=== PATIENT | female | born 1930 | race Caucasian/White ===

== ENCOUNTER 2021-06-20 07:54 | Inpatient (IN) | payer MEDICARE, BC ==
[2021-06-15 14:26] LABS: BASOPHILS % (AUTO) 0.5 % (0-1); EOSINOPHILS # (AUTO) 0.2 X10'3 (0-0.9); EOSINOPHILS % (AUTO) 3.3 % (0-6); LYMPHOCYTES # (AUTO) 1.2 X10'3 (1.1-4.8); LYMPHOCYTES % (AUTO) 18.6 % (21-51); MEAN CORPUSCULAR HEMOGLOBIN 30.8 PG (27.0-31.0); MEAN CORPUSCULAR HGB CONC 32.9 g/dL (33.0-36.5); MEAN CORPUSCULAR VOLUME 93.7 FL (78-98); MEAN PLATELET VOLUME 7.6 FL (7.4-10.4); MONOCYTES # (AUTO) 0.7 X10'3 (0-0.9); MONOCYTES % (AUTO) 10.3 % (2-12); NEUTROPHILS # (AUTO) 4.5 X10'3 (1.8-7.7); NEUTROPHILS % (AUTO) 67.3 % (42-75); PRE OP HEMATOCRIT 41.2 % (35.0-45.0); PRE OP HEMOGLOBIN 13.5 g/dL (12.0-16.0); PRE OP PLATELET COUNT 247 X10'3 (140-440); RED CELL DISTRIBUTION WIDTH 13.6 % (11.5-14.5)
[2021-06-15 14:39] LABS: ALBUMIN 4.2 G/DL (3.4-5.0); ALBUMIN/GLOBULIN RATIO 1.2 (1.1-1.5); ALKALINE PHOSPHATASE 80 IU/L (46-116); BLOOD UREA NITROGEN 22 MG/DL (7-18); BUN/CREATININE RATIO 18.2 (6.6-38.0); CALCIUM 9.4 MG/DL (8.5-10.1); CHLORIDE 99 MMOL/L (99-107); CREATININE 1.21 MG/DL (0.40-0.90); PRE OP ALT 32 U/L (30-65); PRE OP ANION GAP 9 (8-16); PRE OP AST 27 U/L (10-37); PRE OP BILIRUB, TOTAL 0.4 MG/DL (0.0-1.0); PRE OP GLUCOSE 125 MG/DL (70-104); PRE OP POTASSIUM 4.6 MMOL/L (3.4-5.1); PRE OP SODIUM 136 MMOL/L (135-145); TOTAL CARBON DIOXIDE 27.9 MMOL/L (24-32); TOTAL PROTEIN 7.8 G/DL (6.4-8.2); eGFR 42 ML/MIN
[2021-06-15 14:40] LABS: HEMOGLOBIN A1C 6.5 % (4.5-6.2)
[2021-06-20] VITALS (31 sets, daily range): BP systolic 122–171; BP diastolic 52–100
[~2021-06-20] VITALS: Ht 172.7 cm; Wt 74.8 kg
[~2021-06-20 07:54] MED LIST: ASCO-157 PO; ATOR40TA PO; CALC-336 PO; CETI-90 PO; CHOL400T8 PO; DESO60CR TOP; FLAX100015 PO; GABA600T13 PO; LACT1CAP65 PO; LOSA50TA3 PO; METF-900 PO; MOME17SP5 BOTHNARES; MULT-620 PO; POTA8CAP20 PO; VITA-268 PO; VITA400T10 PO; XAL0.005OS OP; cefazolin/dext.iso 2gm/50ml IV ONE; famotidine 20mg tablet PO ONE; ringers solution, lacted 1,000 ML IV SCH; tranexamic acid 650mg tablet PO ONE; vancomycin 1,500 MG in NS 300ml IV soln IV ONE
--- NOTE | 2021-06-20 09:33 | NUR ---
STATES ALLERGY TO ALL ANTIBIOTICS. RECEIVED VANCOMYCIN AND ANCEF 05/2020 PRE-OP FOR SURGERY WITH NO REACTION.
--- NOTE | 2021-06-20 11:23 | NUR ---
REPORT OFF TO ASIA KAUR WHO ASSUMES PT CARE WITH ALL QUESTIONS ANSWERED. PT COMFORTABLE ON THE GURNEY WITH ABIMAEL AT THE BEDSIDE. AWAITING SURGERY
[2021-06-20] MEDS ORDERED: meperidine/PF 25mg/ml syringe IV ONE (13:15)
[2021-06-20] MEDS ORDERED: fentaNYL/PF 50MCG/1 ML 2ML syringe ONE ×2 (14:25→15:19)
[2021-06-20] MEDS ORDERED: midazolam 1 mg/ML 2ml injection ONE (14:25)
[2021-06-20] MEDS ORDERED: sevoflurane 250ml liquid IH ONE (15:14)
[2021-06-20] MEDS ORDERED: ondansetron/PF 4mg/2ml inj IV PRN ×2 (15:15→16:30)
[2021-06-20] MEDS ORDERED: HYDROmorphone/PF 0.2 MG/ML SYRINGE IV PRN (15:15)
[2021-06-20] MEDS ORDERED: ringers solution, lacted 1,000 ML IV SCH (15:15)
[2021-06-20] MEDS ORDERED: mineral oil 10ml sterile, topical TP ONE (15:19)
[2021-06-20] MEDS ORDERED: ROPIVAcaine 0.5% (5mg/ml) 30ml vial ONE ×2 (15:19→16:03)
[2021-06-20] MEDS ORDERED: rocuronium 10mg/ml inj IV ONE (16:04)
[2021-06-20] MEDS ORDERED: LIDOcaine 2% (20mg/ml) 5ml vial ONE (16:04)
[2021-06-20] MEDS ORDERED: propofol inj 20 ML IV ONE (16:04)
[2021-06-20] MEDS ORDERED: ePHEDrine 50MG/ML INJ. ONE (16:04)
[2021-06-20] MEDS ORDERED: ondansetron/PF 4mg/2ml inj ONE (16:04)
[2021-06-20] MEDS ORDERED: dexamethasone sod phosphate 4mg/ml inj. ONE (16:04)
[2021-06-20] MEDS ORDERED: phenylephrine 10mg/ml inj. ONE (16:04)
--- NOTE | 2021-06-20 16:20 | NUR ---
PT ARRIVED TO RECOVERY VIA BED, ACCOMPANIED BY CHRISTOPHER BENTON-REPORT GIVEN, PT AWAKE, VSS, PT C/O PAIN IN LEFT KNEE, DRSG-CDI, KNEE WRAP AND ICE PACK BEING PLACED BY JIG AND FIXTURE REPAIRER PRESENTLY, PEDAL PULSES PRESENT, PT HAS FEELING TO LEFT LEG AND FOOT, SCDS ON, PIV TO RUE 20G, DR WHITE AWARE OF PT PRESENT CONDITION-ORDERS GIVEN.
[2021-06-20] MEDS ORDERED: diphenhydrAMINE 25mg capsule PO PRN ×2 (16:30)
[2021-06-20] MEDS ORDERED: HYDROmorphone 1 mg/ml syringe IV PRN (16:30)
[2021-06-20] MEDS ORDERED: magnesium hydroxide 30ml (MOM) UD suspension PO PRN (16:30)
[2021-06-20] MEDS ORDERED: bisacodyl 10mg suppository rectal RC PRN (16:30)
[2021-06-20] MEDS ORDERED: triamcinolone acet 0.1% cream 15gm TP PRN (16:30)
[2021-06-20] MEDS ORDERED: HYDROmorphone inj. 0.5 MG/0.5 ML DISP.SYRIN IV PRN (16:30)
[2021-06-20] MEDS ORDERED: acetaminophen 325mg tablet PO PRN (16:30)
[2021-06-20] MEDS ORDERED: fluticasone nasal spray 16GM bottle NS PRN (16:30)
[2021-06-20] MEDS ORDERED: oxyCODONE IR 5mg (immed. release) tablet PO PRN (16:30)
[2021-06-20] MEDS ORDERED: cetirizine 10mg tablet PO PRN (16:30)
[2021-06-20] MEDS: morphine 2 MG/ML inj. syringe IV PRN ×2 (16:36→17:45)
[2021-06-20] MEDS ORDERED: acetaminophen 1,000mg/100ml IV 100 ML IV STA (16:38)
[2021-06-20] MEDS: HYDROmorphone/PF 0.2 MG/ML SYRINGE IV PRN ×4 (16:43→18:17)
--- NOTE | 2021-06-20 16:45 | NUR ---
MORPHINE AND IV TYLENOL GIVEN DANIE FOR PT 10/10 LEG PAIN, VS STABLE.
[2021-06-20] MEDS: oxyCODONE IR 5mg (immed. release) tablet PO PRN ×2 (16:58→22:52)
--- NOTE | 2021-06-20 17:45 | NUR ---
OXY IR 10MG GIVEN AT 1700, FOLLOWED BY DOSES OF DILAUDID AND MORPHINE TO TRY AND HELP CURB PAIN-PT TEARFUL, PAIN STILL 8-10/10, VSS, NO RESP SUPPRESSION NOTED, PEDAL PULSES PRESENT
[2021-06-20] MEDS ORDERED: CADD PCA waste documentation MC PRN (18:55)
[2021-06-20] MEDS ORDERED: naloxone 0.4 mg/ml inj IV PRN (18:55)
--- NOTE | 2021-06-20 19:00 | NUR ---
PT C/O ITCHING TO FACE AND UNDER BREAST-UNABLE TO DETERMINE WHAT MED/NARCOTIC MAY BE AT FAULT, GIVEN 50MG OF BENADRYL PO, ALSO SPOKE WITH DR VALENCIA REGARDING CONT. PIAN-MAY SWITCH TO DIL CADD. ORDERS PLACED.
[2021-06-20] MEDS ORDERED: HYDROmorph./NS 0.2 mg/ml CADD 100 ML IV SCH (19:15)
--- NOTE | 2021-06-20 19:30 | NUR ---
CADD STARTED-PT EDUCATED REGARDING USE, PT STILL STATES PAIN 02/14 BUT APPEARS MORE COMFORTABLE AND TALKING ON PHONE WITH FAMILY, UNABLE TO VOID ON BEDPAN, BLADDER SCANNED FOR 700+, 16FR F/C PLACED WITH GOOD URINE OUTPUT-PT TOLERATED WELL.
[2021-06-20] MEDS: HYDROmorph./NS 0.2 mg/ml CADD 100 ML IV SCH ×3 (19:31→23:00)
--- NOTE | 2021-06-20 19:45 | NUR ---
received report from Ct KAUR from recovery. pt arrived in her bed. pt doing ok.
[2021-06-20] MEDS ORDERED: vancomycin/NS 1 GM ADD-VANTAGE 250 ML IV SCH (20:00)
--- NOTE | 2021-06-20 20:00 | NUR ---
REPORT CALLED TO VINCENT SOLIMAN ON SURGICAL-ALL QUESTIONS ANSWERED, PT TAKEN VIA BED TO ROOM 347B WITH ALL BELONGINGS BY OR TECHS, VSS, KNEE WRAP AND ICE IN PLACE, DRSG-CDI, +PULSES BLE, SCDS ON, PIV 20G TO RUE WITH FLUIDS RUNNING THRU PUMP, F/C IN PLACE, PCD CADD - DIALUDID 0.2MG Q10 MIN HOOKED UP TO PT, CALL LIGHT IN REACH.
--- NOTE | 2021-06-20 20:15 | NUR ---
Patient arrived to unit via bed. ALOX4, no complaints of pain at this time. CADD pump was checked and the attempts/given were not cleared prior to set up in recovery. I cleared them.
--- NOTE | 2021-06-20 20:30 | NUR ---
FINAL DOSE OF DILAUDID GIVEN, PT RELAXING A BIT NOW, STATES PAIN 8/10 BUT APPEARS MORE COMFORTABLE, RELAXED EXPRESSION WITH EYES CLOSED, VSS. Addendum: 06/20/21 at 2211 by Dian Palmer RN FINAL DOSE OF DILAUDID GIVEN AT 1817, PT RELAXING A BIT NOW, STATES PAIN 8/10 BUT APPEARS MORE COMFORTABLE, RELAXED EXPRESSION WITH EYES CLOSED, VSS.
[2021-06-20] MEDS: acetaminophen 325mg tablet PO SCH ×2 (21:00→21:56)
[2021-06-20] MEDS: sennosides 8.6mg tablet PO SCH (21:52)
[2021-06-20] MEDS: atorvastatin 20mg tablet PO SCH (21:53)
[2021-06-20] MEDS: gabapentin 300mg capsule PO SCH ×2 (21:53→22:24)
[2021-06-20] MEDS: metFORMIN 500mg tablet PO SCH (21:53)
[2021-06-20] MEDS: losartan 25mg tablet PO SCH (21:54)
[2021-06-20] MEDS: calcium carbonate 500mg chew tablet PO SCH (21:57)
[2021-06-20] MEDS: latanoprost 0.005% 2.5ml ophthalmic drops EACHEYE SCH (21:57)
[2021-06-20] MEDS: potassium cl 20mEq in 1/2 NS 1,000 ML IV SCH (21:58)
[2021-06-21] VITALS: BP 136/74
[2021-06-21 00:01] VITALS: BP 132/75
[2021-06-21] MEDS: ceFAZolin/D5W- 1GM premix 50 ML IV SCH ×2 (00:24→07:12)
[2021-06-21] MEDS: potassium cl 20mEq in 1/2 NS 1,000 ML IV SCH ×2 (00:30→07:11)
[2021-06-21] MEDS: HYDROmorph./NS 0.2 mg/ml CADD 100 ML IV SCH ×6 (01:02→11:00)
[2021-06-21] MEDS: acetaminophen 325mg tablet PO SCH ×4 (02:44→19:55)
[2021-06-21] MEDS: oxyCODONE IR 5mg (immed. release) tablet PO PRN (02:47)
[2021-06-21 04:00] VITALS: BP 103/47
--- NOTE | 2021-06-21 06:07 | NUR ---
I agree with VINCENT Rioschuck tender, assessments, and report given to VINCENT Flores
--- NOTE | 2021-06-21 06:19 | NUR ---
Patient in room [facility] 347. I have received report from JOURDAN KAUR and had the opportunity to ask questions and assume patient care.
[2021-06-21 06:24] LABS: BASOPHILS % (AUTO) 0.3 % (0-1); EOSINOPHILS % (AUTO) 0 % (0-6); HEMATOCRIT 33.4 % (35.0-45.0); HEMOGLOBIN 11.1 g/dl (12.0-16.0); LYMPHOCYTES # (AUTO) 0.7 X10'3 (1.1-4.8); LYMPHOCYTES % (AUTO) 6.6 % (21-51); MEAN CORPUSCULAR HEMOGLOBIN 31.2 PG (27.0-31.0); MEAN CORPUSCULAR HGB CONC 33.2 g/dL (33.0-36.5); MEAN CORPUSCULAR VOLUME 94.1 FL (78-98); MEAN PLATELET VOLUME 7.9 FL (7.4-10.4); MONOCYTES # (AUTO) 0.8 X10'3 (0-0.9); MONOCYTES % (AUTO) 7.5 % (2-12); NEUTROPHILS # (AUTO) 9.1 X10'3 (1.8-7.7); NEUTROPHILS % (AUTO) 85.6 % (42-75); PLATELET COUNT 225 X10'3 (140-440); RED BLOOD COUNT 3.55 X10'6 (4.20-5.60); RED CELL DISTRIBUTION WIDTH 13.7 % (11.5-14.5); WHITE BLOOD COUNT 10.6 X10'3 (4.5-11.0)
--- NOTE | 2021-06-21 06:35 | NUR ---
Problems reprioritized. Patient report given, questions answered & plan of care reviewed with VINCENT Flores.
[2021-06-21 07:07] LABS: ANION GAP 11 (8-16); CHLORIDE 104 MMOL/L (99-107); POTASSIUM 5.3 MMOL/L (3.5-5.1); SODIUM 138 MMOL/L (135-145); TOTAL CARBON DIOXIDE 22.7 MMOL/L (24-32)
[2021-06-21] MEDS: gabapentin 300mg capsule PO SCH ×4 (07:12→20:00)
[2021-06-21] MEDS: lactobacillus rhamnosus 10,000 MMU CELLS/CAPSULE PO SCH (07:12)
[2021-06-21] MEDS: calcium carbonate 500mg chew tablet PO SCH ×2 (07:12→19:55)
[2021-06-21] MEDS: multivitamins, therapeutics tablet PO SCH (07:12)
[2021-06-21] MEDS: cholecalciferol (vitamin D3) 400 unit (10mcg) tablet PO SCH (07:13)
[2021-06-21] MEDS: potassium chloride 8mEq ER tablet PO SCH (07:13)
[2021-06-21] MEDS: ascorbic acid 500mg tablet PO SCH (07:14)
[2021-06-21] MEDS ORDERED: FLAXSEED OIL PO SCH (08:00)
[2021-06-21] MEDS ORDERED: non-formulary drug (Vitamin B Complex (B Complex) 1 TAB) PO SCH (08:00)
[2021-06-21] MEDS: vitamin E 400 unit capsule PO SCH (08:48)
[2021-06-21] MEDS: aspirin 325mg tablet PO SCH (08:48)
[2021-06-21 09:00] VITALS: BP 112/49
[2021-06-21] MEDS ORDERED: MESSAGE TO PHARMACY PO ONE (11:50)
[2021-06-21] MEDS ORDERED: HYDROcodone/acetaminophen 5mg/325mg tablet PO PRN (11:50)
[2021-06-21] MEDS ORDERED: glucagon, human recombinant 1mg kit SUBCUT PRN (11:50)
[2021-06-21] MEDS ORDERED: dextrose 50%-water 50ml dispensing syringe IV PRN ×2 (11:50)
[2021-06-21] MEDS ORDERED: dextrose ORAL solution 15 GM/59 ML bottle PO PRN ×2 (11:50)
[2021-06-21] MEDS ORDERED: insulin Lispro (HumaLOG) vial - multi-dose SQ SCH (11:50)
[2021-06-21 11:52] VITALS: BP 118/46
--- NOTE | 2021-06-21 12:34 | NUR ---
per yesenia, she would like the pts burciaga cath to be DC tonight with nursing. will pass this along to maintenance supervisor 2nd shift.
[2021-06-21] MEDS ORDERED: normal saline 1000ml 1,000 ML IV SCH (12:35)
--- NOTE | 2021-06-21 13:20 | NUR ---
was on lunch break, resource nurse did CADD waste due to CADD being dc
--- NOTE | 2021-06-21 14:17 | NUR ---
Primary joint consult: Pt s/p arthroplasty of L knee this admit. Pt asleep at time of assessment. Written High protein diet ed w/ RD contact info placed in pt chart. Addendum: 06/21/21 at [address] Amended: Links added.
--- NOTE | 2021-06-21 16:55 | NUR ---
Per primary nurse and MD orders changed pt's island dressing on left knee, old dressing had red drainage, steri strips intact and surgical site slightly moist, new island dressing currently clean dry and intact, continue to monitor
[2021-06-21] MEDS: HYDROcodone/acetaminophen 10/325mg tab PO PRN (17:45)
--- NOTE | 2021-06-21 18:22 | NUR ---
Problems reprioritized. Patient report given, questions answered & plan of care reviewed with shira piper.
--- NOTE | 2021-06-21 18:23 | NUR ---
pt dressing is changed
[2021-06-21] MEDS: sennosides 8.6mg tablet PO SCH (19:56)
[2021-06-21] MEDS: celeCOXIB 100mg capsule PO SCH (19:57)
[2021-06-21] MEDS: latanoprost 0.005% 2.5ml ophthalmic drops EACHEYE SCH (19:58)
[2021-06-21 20:00] VITALS: BP 132/59
[2021-06-21] MEDS: atorvastatin 20mg tablet PO SCH (20:01)
[2021-06-21] MEDS: metFORMIN 500mg tablet PO SCH (20:02)
[2021-06-21] MEDS: losartan 25mg tablet PO SCH (20:03)
[2021-06-21] MEDS ORDERED: insulin glargine (Lantus) pen - multi-dose SQ SCH (21:00)
[2021-06-22] VITALS: BP 129/70
[2021-06-22] MEDS: HYDROcodone/acetaminophen 10/325mg tab PO PRN (01:29)
[2021-06-22] MEDS: acetaminophen 325mg tablet PO SCH ×3 (01:30→13:12)
--- NOTE | 2021-06-22 05:36 | NUR ---
Fernando catheter discontinued , monitor for voiding .
--- NOTE | 2021-06-22 06:30 | NUR ---
Report given , questions answered and plan of care reviewed with Linsey KAUR .
[2021-06-22 06:37] LABS: BASOPHILS % (AUTO) 0.5 % (0-1); EOSINOPHILS # (AUTO) 0.4 X10'3 (0-0.9); EOSINOPHILS % (AUTO) 4.7 % (0-6); HEMATOCRIT 29.6 % (35.0-45.0); HEMOGLOBIN 10.1 g/dl (12.0-16.0); LYMPHOCYTES # (AUTO) 1.8 X10'3 (1.1-4.8); LYMPHOCYTES % (AUTO) 21.8 % (21-51); MEAN CORPUSCULAR HEMOGLOBIN 31.9 PG (27.0-31.0); MEAN CORPUSCULAR VOLUME 93.8 FL (78-98); MONOCYTES # (AUTO) 1.2 X10'3 (0-0.9); MONOCYTES % (AUTO) 13.9 % (2-12); NEUTROPHILS # (AUTO) 4.9 X10'3 (1.8-7.7); NEUTROPHILS % (AUTO) 59.1 % (42-75); PLATELET COUNT 178 X10'3 (140-440); RED BLOOD COUNT 3.16 X10'6 (4.20-5.60); RED CELL DISTRIBUTION WIDTH 13.3 % (11.5-14.5); WHITE BLOOD COUNT 8.3 X10'3 (4.5-11.0)
[2021-06-22 07:10] VITALS: BP 156/65
[2021-06-22] MEDS: aspirin 325mg tablet PO SCH (07:38)
[2021-06-22] MEDS: celeCOXIB 100mg capsule PO SCH (07:40)
[2021-06-22] MEDS: lactobacillus rhamnosus 10,000 MMU CELLS/CAPSULE PO SCH (07:42)
[2021-06-22] MEDS: gabapentin 300mg capsule PO SCH ×2 (07:42→13:10)
[2021-06-22] MEDS: multivitamins, therapeutics tablet PO SCH (07:43)
[2021-06-22] MEDS: calcium carbonate 500mg chew tablet PO SCH (07:43)
[2021-06-22] MEDS: vitamin E 400 unit capsule PO SCH (07:43)
[2021-06-22] MEDS: cholecalciferol (vitamin D3) 400 unit (10mcg) tablet PO SCH (07:45)
[2021-06-22] MEDS: ascorbic acid 500mg tablet PO SCH (07:46)
[2021-06-22] MEDS: potassium chloride 8mEq ER tablet PO SCH (08:00)
[2021-06-22 12:46] VITALS: BP 121/64
--- NOTE | 2021-06-22 14:37 | NUR ---
Celine Springer aware patient choked on some lunch patient is spitting up some clear phlegm but oxygen saturations are at 100% RA. Per Celine just advise RPA that patient did choke a little on her lunch and have them monitor patient, because if she had aspirated we would not know for a few days. Patient states she has done this before. Primary RN Linsey aware.
--- NOTE | 2021-06-22 15:06 | NUR ---
Patient is stable and appropriate for transfer to [facility] with [facility]. All belongings taken from room. IV removed. Report called to ELIZABETH Blair. All questions answered. patient also given both of her ice packs.
[2021-06-22] MEDS ORDERED: acetaminophen 325mg tablet PO PRN (16:30)
== END 2021-06-22 15:01 | DRG 470 ==
LOC: PAS IN 07:54 → EDSTATUS 11:00 → SUR 3N 20:10
PROVIDERS: ADMIT Orthopaedic Surgery; ATTEND Orthopaedic Surgery
PROC: 3E0T3BZ Introduction of Anesthetic Agent into Peripheral Nerves and Plexi, Percutaneous Approach (ICD-10-PCS; 2021-06-20)
PROC: 3E0T33Z Introduction of Anti-inflammatory into Peripheral Nerves and Plexi, Percutaneous Approach (ICD-10-PCS; 2021-06-20)
PROC: 8E0YXBZ Computer Assisted Procedure of Lower Extremity (ICD-10-PCS; 2021-06-20)
PROC: 8E0Y0CZ Robotic Assisted Procedure of Lower Extremity, Open Approach (ICD-10-PCS; 2021-06-20)
PROC: 0SRD0JZ Replacement of Left Knee Joint with Synthetic Substitute, Open Approach (ICD-10-PCS; principal; 2021-06-20 14:20)
PROC: 05HY33Z Insertion of Infusion Device into Upper Vein, Percutaneous Approach (ICD-10-PCS; 2021-06-22)
DX: M17.12 Unilateral primary osteoarthritis, left knee (principal); I12.9 Hypertensive chronic kidney disease with stage 1 through stage 4 chronic kidney disease, or unspecified chronic kidney disease; Z20.822 Contact with and (suspected) exposure to COVID-19; E11.22 Type 2 diabetes mellitus with diabetic chronic kidney disease; N18.9 Chronic kidney disease, unspecified; Z88.8 Allergy status to other drugs, medicaments and biological substances; Z88.2 Allergy status to sulfonamides
CPT/HCPCS: 36415; 36569; 76937; 80051; 80053; 82948; 83036; 85025; 87081; 87635; 97110; 97116; 97161; 97530; A4215; A7000; C1776; G0378; J0131; J0690; J1100; J1170; J1815; J2175; J2250; J2270; J2370; J2405; J2704; J2795; J3010; J3370; J3480; J3490; J7030; J7040; J7120; Q0163; U0003; U0005

== ENCOUNTER 2021-12-30 07:57 | Emergency (ER) | payer MEDICARE, BC ==
[~2021-12-30] VITALS: Ht 172.7 cm; Wt 72.7 kg
[~2021-12-30 07:57] MED LIST changes: -cefazolin/dext.iso 2gm/50ml IV ONE; -famotidine 20mg tablet PO ONE; -ringers solution, lacted 1,000 ML IV SCH; -tranexamic acid 650mg tablet PO ONE; -vancomycin 1,500 MG in NS 300ml IV soln IV ONE
[2021-12-30] MEDS ORDERED: ondansetron/PF 4mg/2ml inj IV ONE (08:10)
[2021-12-30] MEDS ORDERED: normal saline 1000ML IV soln IVB ONE ×2 (08:10→09:25)
[2021-12-30] MEDS ORDERED: morphine 2 MG/ML inj. syringe IV PRN (08:10)
[2021-12-30 08:46] LABS: BASOPHILS % (AUTO) 0.8 % (0-1); EOSINOPHILS # (AUTO) 0.2 X10'3 (0-0.9); HEMOGLOBIN 13.4 g/dl (12.0-16.0); LYMPHOCYTES # (AUTO) 1.9 X10'3 (1.1-4.8); LYMPHOCYTES % (AUTO) 31.9 % (21-51); MEAN CORPUSCULAR HEMOGLOBIN 29.8 PG (27.0-31.0); MEAN CORPUSCULAR HGB CONC 32.6 g/dL (33.0-36.5); MEAN CORPUSCULAR VOLUME 91.3 FL (78-98); MEAN PLATELET VOLUME 7.4 FL (7.4-10.4); MONOCYTES # (AUTO) 0.9 X10'3 (0-0.9); MONOCYTES % (AUTO) 15.1 % (2-12); NEUTROPHILS # (AUTO) 2.8 X10'3 (1.8-7.7); NEUTROPHILS % (AUTO) 48.2 % (42-75); PLATELET COUNT 223 X10'3 (140-440); RED BLOOD COUNT 4.49 X10'6 (4.20-5.60); WHITE BLOOD COUNT 5.8 X10'3 (4.5-11.0)
[2021-12-30 08:59] LABS: ALANINE AMINOTRANSFERASE 27 U/L (12-78); ALBUMIN/GLOBULIN RATIO 1.1 (1.1-1.5); ALKALINE PHOSPHATASE 80 IU/L (46-116); ANION GAP 13 (8-16); ASPARTATE AMINO TRANSFERASE 31 U/L (10-37); BILIRUBIN,TOTAL 0.5 MG/DL (0.1-1.0); BLOOD UREA NITROGEN 22 MG/DL (7-18); BUN/CREATININE RATIO 17.2 (6.6-38.0); CALCIUM 9.6 MG/DL (8.5-10.1); CHLORIDE 102 MMOL/L (99-107); CREATININE 1.28 MG/DL (0.40-0.90); GLUCOSE 108 MG/DL (70-104); MAGNESIUM 1.8 MG/DL (1.5-2.4); POTASSIUM 4.3 MMOL/L (3.5-5.1); SODIUM 140 MMOL/L (135-145); TOTAL CARBON DIOXIDE 24.9 MMOL/L (24-32); TOTAL PROTEIN 7.8 G/DL (6.4-8.2); eGFR 39 ML/MIN
[2021-12-30] MEDS ORDERED: ONDA4TAB12 PO (09:26)
[2021-12-30 10:33] VITALS: BP 147/72
[2021-12-30 10:49] LABS: CLARITY,URINE CLEAR (Clear); COLOR,URINE YELLOW (Yellow); GLUCOSE, URINE NEGATIVE (Neg); KETONES,URINE NEGATIVE (Neg); LEUKOCYTE ESTERASE ,URINE NEGATIVE (Neg); NITRITES, URINE POSITIVE (Neg); OCCULT BLOOD,URINE TRACE-INTACT (Neg); PROTEIN,URINE NEGATIVE (Neg); UROBILINOGEN,URINE 0.2 E.U/dL (0.2-1.0)
[2021-12-30 10:50] LABS: UA COLLECTION TYPE VOIDED
[2021-12-30] MEDS ORDERED: diltiazem 5mg/ml 5ml inj. IV ONE (10:55)
[2021-12-30 10:57] LABS: BACTERIA,URINE 4+ /HPF (Neg); MUCUS STRANDS NONE SEEN /LPF (Neg); RBC,URINE NONE SEEN /HPF (0-2); SQUAMOUS EPITHELIAL CELL,UR NONE SEEN /LPF (FEW); WBC,URINE 0-4 /HPF (0-4)
== END 2021-12-30 13:25 | disposition home or self-care (01) ==
LOC: ER 07:57
DX: K52.9 Noninfective gastroenteritis and colitis, unspecified (principal); B34.9 Viral infection, unspecified; R10.84 Generalized abdominal pain; Z90.89 Acquired absence of other organs; Z90.49 Acquired absence of other specified parts of digestive tract; Z90.710 Acquired absence of both cervix and uterus; Z88.1 Allergy status to other antibiotic agents; Z88.0 Allergy status to penicillin; Z88.2 Allergy status to sulfonamides; Z79.899 Other long term (current) drug therapy
CPT/HCPCS: 71045; 74018; 80053; 81001; 83735; 85025; 87088; 96361; 96374; 96375; 99284; J2270; J2405; J7030; 87186